=== PATIENT | female | born 1985 | race Caucasian/White ===

== ENCOUNTER 2018-06-13 16:13 | Outpatient (REF) | payer OTHER, SELFPAY ==
--- NOTE | 2018-06-13 15:40 | PAPFT_PTH ---
PATIENT: Sandra Fitch LOC: [facility] U#:[id number] AGE/SX: 33/F ROOM: RE06/13/[address]: Juju Terrell : 1985 BED: DIS: 06/13/2018 SPEC #: [id number] RECD: 06/13/18 18:03 STATUS: DON REStefany #: [id number] SVITLANA: 06/13/18 15:[address]: Juju Terrell DEPT: [facility] Cytology RECD BY: Peggy Cueto ENTERED: 06/13/18 18:04 SP TYPE: PAPFT MARK DR: None Tissues: 1 - CX/ENDOCX FOR PAP SMEARS Procedures: PAP THIN PREP/UVM Screening HPV DNA PROBE Comments: [id number]
== END 2018-06-13 16:33 ==
LOC: LBN 16:13
PROVIDERS: Visit Provider Obstetrics & Gynecology Gynecology
DX: Z12.4 Encounter for screening for malignant neoplasm of cervix (principal); Z11.51 Encounter for screening for human papillomavirus (HPV)
CPT/HCPCS: 88142; 87624

== ENCOUNTER 2018-07-27 16:42 | Outpatient (REF) | payer OTHER, SELFPAY ==
[2018-07-29 14:33] LABS: Chlamydia Result Negative; GC Result Negative; Specimen Description CERVIX
== END 2018-07-27 17:02 ==
LOC: LBN 16:42
PROVIDERS: Visit Provider Advanced Practice Midwife
DX: Z11.3 Encounter for screening for infections with a predominantly sexual mode of transmission (principal)
CPT/HCPCS: 87491; 87591

== ENCOUNTER 2020-05-17 04:59 | Outpatient (CLI) | payer OTHER, SELFPAY ==
--- NOTE | 2020-05-17 15:20 | DI.MAMMO_ITS ---
EXAM: MG MAMMO SCREENING CLINICAL HISTORY: screening,z12.39,z80.3, family h/o breast ca. TECHNIQUE: Bilateral full field digital CC and MLO mammographic images were obtained with 3D tomosyn thesis and utilizing computer aided detection (CAD). COMPARISON: This is a baseline mammogram on this 35-year-old patient whose mother of metastatic breast cancer at age 48. She has no present breast complaints. This patient has apparently had a p rior left breast biopsy, date not given. FINDINGS: Fibroglandular tissue pattern is dense, this decreasing the sensitivity mammogram for finding hidden underlying lesions. There are no new findings in the immediate vicinity of the biopsy marker clip in the upper outer quad rant of the left breast. Posteriorly in the left breast there is a subtle microcalcification group which exhibits a CAD design ation the MLO view. Spot magnification view recommended. In the right breast on 3D MLO imaging there is a subtle suggestion of a nodular density located 5 cm in from the nipple on the MLO view, this measuring approximately 4 x 3 millimeters. There is no significant architectural distortion or skin thickening-traction. IMPRESSION: Dense bilateral fibroglandular tissue (which decreases the sensitivity of the mammogram for finding h idden underlying lesions). 4 x 3 millimeter right breast nodule. Posteriorly located left breast mi crocalcification group. Recommend further breast imaging, to include: Spot Mag 2D view of posteriorl y located left breast microcalcifications.. Spot compression 3D view of right breast asymmetric dens ity-possible nodule. Also recommend bilateral breast ultrasound, given the density of this patient's fibroglandular tissue, the above findings, anterior significant immediate family history (mother d of breast cancer at age 48). BI-RADS Category 0 - Assessment Incomplete: Need additional imaging evaluation Breast Density - Category C - Heterogeneously dense Breast density Category C or D implies that the patient has dense breast tissue. Dense breast tissue can make it harder to find cancer on a mammogram. Dense breast tissue is also associated with an incr eased risk of breast cancer. This information about the result of the mammogram report was provided to the patient to raise their awareness. Use this report when you speak with the patient about their risks for breast cancer, which includes their family history. At that time, you may recommend additional screening tests (Ultrasoun d or MRI) as these tests may add significant information. A negative radiographic report should not delay biopsy if a dominant or clinically suspicious mass is present. Up to ten percent of cancers are not identified on mammography. A negative report may reinforce clinical impression. Adenosis and dense breasts may obscure an underlying neoplasm. False positive reports average 6 to 10%. Patient will receive a letter notifying them of these results.
== END 2020-05-17 05:19 ==
PROVIDERS: PCP Obstetrics & Gynecology; Visit Provider Obstetrics & Gynecology
DX: Z12.31 Encounter for screening mammogram for malignant neoplasm of breast (principal); R92.8 Other abnormal and inconclusive findings on diagnostic imaging of breast; Z80.3 Family history of malignant neoplasm of breast
CPT/HCPCS: 77063; 77067

== ENCOUNTER 2020-05-21 02:09 | Outpatient (CLI) | payer OTHER, SELFPAY ==
--- NOTE | 2020-05-21 | DI.MAMMO_ITS ---
EXAM: MG MAMMO SCREEN CALL BACK BI and bilateral limited breast ultrasound. CLINICAL HISTORY: F/U MAMMO,DENSE BREASTS,SUBTLE LT MICROCALCIFICATIONS,RT BREAST DENSITY,?. TECHNIQUE: Craniocaudal and mediolateral oblique Full Field Digital Mammography views of the bilater al breast with Computer Aided Diagnosis followed by Tomosynthesis and bilateral breast ultrasound. COMPARISON: No priors available at this time. When the prior films become available, an addendum wi ll be issued at that time. FINDINGS: Mammography/Tomosynthesis: Masses/Architectural Distortion: In the right breast a small well-circumscribed nodule persists in th e upper right breast. Microcalcifictions: No suspicious pleomorphic-type are seen. There again seen a few punctate calcific ations in the posterior upper left breast on the MLO view. Skin Thickening/Nipple Retraction: None. Bilat breast US: Echotexture: Normal appearance of the glandular tissue. Shadowing: No suspicious foci. Cyst: At the 10 o'clock position of the right breast 5 cm from the nipple there is a 0.[address] present. No suspicious cystic or solid masses are seen in the right breast. A limited left breas t ultrasound was performed. The upper inner and upper outer quadrants were evaluated sonographically . No cystic or solid masses are seen sonographically in the left breast. Solid lesions: None seen. Ductal dilation: None. IMPRESSION: 1. No evidence of malignancy is noted. 2. A six-month follow-up left mammogram is recommended for re-evaluation of the calcifications. If t he prior films become available an addendum will be issued. 3. The findings were discussed with the patient on the date of the examination. BI-RADS Category 3 - Probably Benign Finding: Recommend follow-up imaging in 3 months Breast Density - Category C - Heterogeneously dense Breast density Category C or D implies that the patient has dense breast tissue. Dense breast tissue can make it harder to find cancer on a mammogram. Dense breast tissue is also associated with an incr eased risk of breast cancer. This information about the result of the mammogram report was provided to the patient to raise their awareness. Use this report when you speak with the patient about their risks for breast cancer, which includes their family history. At that time, you may recommend additional screening tests (Ultrasoun d or MRI) as these tests may add significant information. A negative radiographic report should not delay biopsy if a dominant or clinically suspicious mass is present. Up to ten percent of cancers are not identified on mammography. A negative report may reinforce clinical impression. Adenosis and dense breasts may obscure an underlying neoplasm. False positive reports average 6 to 10%. Patient will receive a letter notifying them of these results.
== END 2020-05-21 02:29 ==
PROVIDERS: PCP Obstetrics & Gynecology; Visit Provider Obstetrics & Gynecology
DX: R92.0 Mammographic microcalcification found on diagnostic imaging of breast (principal); N60.01 Solitary cyst of right breast; Z12.31 Encounter for screening mammogram for malignant neoplasm of breast
CPT/HCPCS: 76642; 77063; 77067

== ENCOUNTER 2020-11-22 03:23 | Outpatient (CLI) | payer OTHER, SELFPAY ==
--- NOTE | 2020-11-22 09:00 | DI.MAMMO_ITS ---
Exam(s) MAMMO DIAGNOSTIC UNI EXAM: MAMMO DIAGNOSTIC UNI CLINICAL HISTORY: recheck left breast, F/U ABNL MAMMO, R92.8. TECHNIQUE: Craniocaudal and mediolateral oblique Full Field Digital Mammography views of the left br east with Computer Aided Diagnosis followed by Tomosynthesis. COMPARISON: Priors available for comparison FINDINGS: Mammography/Tomosynthesis: Masses/Architectural Distortion: None seen. A biopsy clip is again seen in the upper outer quadrant o f the left breast. Microcalcifictions: The microcalcifications in the posterior left breast are less well visualized but are stable compared to the prior examination. Skin Thickening/Nipple Retraction: None. IMPRESSION: 1. No evidence of malignancy is noted. 2. A six-month follow-up left mammogram is recommended for re-evaluation of the microcalcifications. 3. The findings were discussed with the patient on the date of the examination. BI-RADS Category 3 - 6 month - Probably Benign Finding: Recommend follow-up imaging in 6 months Breast Density - Category C - Heterogeneously dense Breast density Category C or D implies that the patient has dense breast tissue. Dense breast tissue can make it harder to find cancer on a mammogram. Dense breast tissue is also associated with an incr eased risk of breast cancer. This information about the result of the mammogram report was provided to the patient to raise their awareness. Use this report when you speak with the patient about their risks for breast cancer, which includes their family history. At that time, you may recommend additional screening tests (Ultrasoun d or MRI) as these tests may add significant information. A negative radiographic report should not delay biopsy if a dominant or clinically suspicious mass is present. Up to ten percent of cancers are not identified on mammography. A negative report may reinforce clinical impression. Adenosis and dense breasts may obscure an underlying neoplasm. False positive reports average 6 to 10%. Patient will receive a letter notifying them of these results.
== END 2020-11-22 03:43 ==
PROVIDERS: PCP Obstetrics & Gynecology; Visit Provider Obstetrics & Gynecology
DX: R92.8 Other abnormal and inconclusive findings on diagnostic imaging of breast (principal)
CPT/HCPCS: 77061; 77065; G0279

== ENCOUNTER 2023-04-05 21:49 | Emergency (ER) | payer OTHER, SELFPAY ==
[2023-04-05 21:53] VITALS: BP 93/59; PULSE 80; RESP 18; TEMP 36.5; O2SAT 98
[2023-04-05 22:06] VITALS: BP 93/59; PULSE 80; RESP 18; TEMP 36.5; O2SAT 98
--- NOTE | 2023-04-05 22:14 | ED.GENADUL_ITS ---
HPI General Date/Time Provider Initiated Documentation: 04/05/23 22:00 . HPI Narrative: 37-year-old female with a past medical history of bilateral mastectomy, previous in 2018, previous inguinal hernia repair, family history of ovarian cancer, presents today for abdominal pain. Patient states that she recently had a suspected gastroenteritis 6 to 7 days ago, she had 2 to 3 days of persistent vomiting. That has since resolved over 5 days ago, however this afternoon while performing yoga she had relatively sudden onset sharp and achy umbilical and left-sided abdominal pain. It would come and go in severity, but would not completely dissipate. It was primarily situated around the periumbilical and left upper and left mid abdominal regions. She had multiple episodes of dry heaving and some vomiting. She did try taking Zofran at home with no improvement. She denies pain like this before. She denies any urinary complaints, no vaginal bleeding or discharge. She does have the levonorgestrel IUD in place. No other complaints at this time. No other modifying factors. She denies any diarrhea. Related Data Home Medications Medication Instructions Recorded Confirmed levonorgestrel 21 mcg/24 hours (8 1 device intrauterine ONCE #1 ea 07/27/18 04/05/23 yrs) 52 mg intrauterine device (Mirena) docusate calcium 240 mg capsule 240 mg PO BID PRN 06/10/22 04/05/23 linaclotide 72 mcg capsule 72 mcg PO QAM PRN constipation #90 01/27/23 04/05/23 (Linzess) caps ondansetron 4 mg disintegrating 4 mg PO Q8H #20 tabs 04/06/23 tablet Previous Rx's Medication Instructions Recorded levonorgestrel 21 mcg/24 hours (8 1 device intrauterine ONCE #1 ea 07/27/18 yrs) 52 mg intrauterine device (Mirena) linaclotide 72 mcg capsule 72 mcg PO QAM PRN constipation #90 01/27/23 (Linzess) caps ondansetron 4 mg disintegrating 4 mg PO Q8H #20 tabs 04/06/23 tablet Allergies Allergy/AdvReac Type Severity Reaction Status Date / Time Sulfa (Sulfonamide Allergy Intermediate Hives Verified 04/05/23 22:06 Antibiotics) General Stated Complaint: Abd Prob MICK: 3 Review of Systems All systems reviewed & are unremarkable except as noted in HPI and below Exam Narrative Exam Narrative: 1.Const: Well-nourished, Well-developed, appearing stated age 2.Eyes: PERRL, no conjunctival injection, and symmetrical lids. 3.ENT: Atraumatic external nose and ears. Dry MM. Neck: Symmetric, trachea midline, No thyromegaly. 4.CVS: +S1/S2, No murmurs or gallops. Peripheral pulses 2+ and equal in all extremities. Brisk capillary refill in all extremities. 5.RESP: Unlabored respiratory effort. Clear to auscultation bilaterally. No wheezes rales or rhonchi 6.GI: Soft, nondistended. No pain to McBurney's point, negative Romo sign. Mild left upper and left mid abdominal tenderness on palpation. Negative obturator and psoas sign. Positive mild heel strike test on the left. 7.MSK: Normocephalic/Atraumatic, Extremities w/o deformity or ttp No cyanosis or clubbing, Normal movement of all extremities 8.Skin: Warm, Dry. No rashes or lesions. 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 Sensation grossly intact, no focal neurologic deficits. 10.Psych: (AAO) x3. Appropriate mood and affect Course Vital Signs Vital signs: Vital Signs Temperature 36.5 C 04/05/23 21:53 Pulse 80 04/05/23 21:53 Respiratory Rate 18 04/05/23 21:53 Blood Pressure 93/59 L 04/05/23 21:53 Pulse Oximetry 98 04/05/23 21:53 Temperature 36.5 C 04/05/23 22:06 Temperature Source Temporal Artery Scan 04/05/23 22:06 Pulse 80 04/05/23 22:06 Respiratory Rate 18 04/05/23 22:06 Respiratory Effort Normal, Non-Labored, Short of Breath 04/05/23 22:01 Blood Pressure 93/59 L 04/05/23 22:06 Blood Pressure Position Supine 04/05/23 22:06 Pulse Oximetry 98 04/05/23 22:06 Oxygen Delivery Method Room Air 04/05/23 22:06 Oxygen Flow Rate 0 04/05/23 21:53 End Tidal Co2 6 04/05/23 21:53 Medical Decision Making 37-year-old female with a past medical history of bilateral mastectomy, previous in 2018, previous inguinal hernia repair, family history of ovarian cancer, presents today for abdominal pain. Patient states that she recently had a suspected gastroenteritis 6 to 7 days ago, she had 2 to 3 days of persistent vomiting. That has since resolved over 5 days ago, however this afternoon while performing yoga she had relatively sudden onset sharp and achy umbilical and left-sided abdominal pain. It would come and go in severity, but would not completely dissipate. It was primarily situated around the periumbilical and left upper and left mid abdominal regions. She had multiple episodes of dry heaving and some vomiting. She did try taking Zofran at home with no improvement. She denies pain like this before. She denies any urinary complaints, no vaginal bleeding or discharge. She does have the levonorgestrel IUD in place. No other complaints at this time. No other modifying factors. She denies any diarrhea. Exam demonstrates patient in mild to moderate pain. Tenderness in the left upper and left mid abdominal regions. No right-sided tenderness or right upper or lower quadrant tenderness. No flank or CVA tenderness. The remainder the patient's exam appears benign. Differential includes diverticulitis, ovarian cyst, obstruction, kidney stone. Patient is requesting to stick with NSAID therapy for pain control. We will give oral Zofran, a liter of normal saline for rehydration, 15 mg of Toradol IV, get a CAT scan to evaluate for acute etiologies, evaluate for laboratory abnormalities including pancreatitis, monitor closely and reassess. 2:24 AM Laboratory workup has returned normal, lipase normal, urinalysis shows no evidence of blood or infection, trace ketones are noted. Patient is given total of 2 L of normal saline at this point. After Zofran Toradol and Ofirmev her pain is notably improved. She has been drinking water while here in the ED. Laboratory workup demonstrates minimal white count, no bandemia. CT scan per radiology shows evidence of small and large bowel distention concerning for ileus. There is notable stool balls are present, there is a left ovarian cyst, but this is smaller in nature not the location of the patient's symptoms. On reassessment patient is feeling better. I discussed with the patient admission for observation and fluids versus discharge, patient prefers discharge at this time. I did discuss with her potential need for returning if her vomiting returns. Patient understands this. Patient will be discharged home with Zofran as noted and instructions for liquid diet for the next 24 to 48 hours. Discussed red flags for which to return. I have extensively reviewed the treatment plan and discharge instructions with the patient and their family. I have addressed all patient concerns at this time. The patient and family was made aware of what symptoms to monitor for that would warrant a return to the emergency department. Discussed the plan with the patient and family, they demonstrate verbal understanding and agreement with our assessment and plan at this time. The documentation in this chart was dictated using [employer] dictation software. Please excuse any dictation errors. FINDINGS: Limitations: Mild motion artifact. Liver: No focal hepatic lesion identified. Gallbladder and bile ducts: Distended gallbladder. Mild biliary ductal dilatation. Pancreas: No CT evidence for acute pancreatitis. Spleen: No splenomegaly. Adrenal glands: Adrenal thickening. Kidneys and ureters: No hydronephrosis or evidence for pyelonephritis. Stomach and bowel: Gastric distension. Diffuse fluid distension of small bowel. No dilated loops to suggest high-grade obstruction at this time. Large amount of retained fecal material throughout the colon. Appendix: No evidence of appendicitis. Intraperitoneal space: No free air. Vasculature: No abdominal aortic aneurysm. Lymph nodes: Multiple mesenteric lymph nodes. Urinary bladder: No acute findings. Reproductive: Intrauterine device. 2.3 cm septated left ovarian cyst. Bones/joints: No pertinent acute abnormality seen. Soft tissues: No pertinent acute abnormality seen. IMPRESSION: 1. Distension of small and large bowel. Consider ileus, inflammation. 2. Retained fecal material throughout the colon. Correlate clinically for history of constipation. 3. Left ovarian cyst. 4. Additional findings as above. Thank you for allowing us to participate in the care of your patient. Dictated and Authenticated by: Elizabeth Hopkins MD 04/06/2023 1:34 AM Eastern Time ([place] & [place]) Quality:SDOH Health Related Social Needs: No Data to Display PFSH All Active Problems (Updated 04/06/23 @ 02:21 by Td Mas DO) Ileus (Acute) Chronic constipation (Acute) Monoallelic mutation of PALB2 gene (Chronic) Increased risk for Breast (35-60%) Ovarian (3-5%) and Pancreatic malignancy. Has referral to Comprehensive Breast Program at [facility] [place] Family history of malignant neoplasm of breast (Acute) IUD surveillance (Acute) Medical History Well woman exam with routine gynecological exam Abnormal screening mammogram Done 04/2020. Reviewed by radiology with recommendation for 6 month follow up mammo and B/L breast U/S. Patient is scheduled for these diagnostics Vulvar lesion Well woman exam with routine gynecological exam History of placenta previa complete previa. labor and PCS at 33w EGA. P tcounseled that she is 4-8% chance of recurrence with another . 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 [facility]. 20% risk of recurrence. 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 M. 6lb9oz (2990gm) Repair of inguinal hernia Family History Mother , Dx premenopausal breast CA. Neg nodes. Rx with lumpectomy and Tamoxifen. 6yrs later metastatic breast Ca. 54yo Breast cancer Aunt , Dx postmenopausal breast CA. 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 [employer] Pets and animals: Yes (3) Sexually active: Yes Do you think of yourself as: straight/heterosexual Current gender identity: female What is your relationship status?: How often do you talk on the phone with friends or family?: three or more times per week How often do you get together with friends or relatives?: twice per week Do you belong to any clubs or organized social groups?: no Panel score (0-1 are the most socially isolated patients): 2 What type of physical activity do you participate in: running Duration: 30-45 minutes/day Frequency: 5-6 times per week Clover/Episcopal: None Special clvoer needs: No Seatbelt use: always Helmet use: Yes Helmet use: always Drive intox or ride w/intox sales route driver: No Additional Social history: - [employer]. 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 Daughter Pat. Son Jin. Female Reproductive History Menstrual control method: pills History History 2 Para Hx # Term Pregnancies 1 Multiple births Hx # Pregnancies 1 Ectopic pregnancies AB induced Hx Number of Living Children AB spontaneous Discharge Plan Disposition Patient Disposition: Home Condition: Good Discharge Details Clinical Impression: Ileus Primary Care Provider: Devi Bobby ED Provider: Td Mas Home Meds and New Rx's Prescriptions: New ondansetron 4 mg tablet,disintegrating 4 mg PO Q8H Qty: 20 0RF No Action Mirena 20 mcg/24 hours (5 yrs) 52 mg intrauterine device 1 device IY ONCE Qty: 1 0RF Rx Instructions: as a single dose docusate calcium 240 mg capsule 240 mg PO BID PRN Patient Comments: constipation Linzess 72 mcg capsule 72 mcg PO QAM PRN (Reason: constipation) Qty: 90 3RF Rx Instructions: Take at least 30 min prior to first meal for constipation Discharge Instructions Instructions: Ileus (ED) Additional Instructions: At this time your CAT scan shows evidence of an ileus. You do have small ovarian cyst as well. I suspect the ileus and constipation is the cause of your symptoms at this time. Please use the Zofran as needed. Please stick with a liquid diet for the next 24 to 36 hours, you can then transition to a semisolid diet with Jell-O, fat-free yogurt, applesauce, and small bites of rice. If you do well with this you can continue to advance the diet, however if you have continued cramps then you may need to transition back to a liquid diet. As we discussed together there is a concern that the ileus may transition into an obstruction. If you develop repeat vomiting that cannot be controlled with Zofran, please return for reassessment and fluids. If you notice any worsening of your symptoms, or any new symptoms such as vomiting, diarrhea, fever, chills, shortness of breath, chest pain, numbness, weakness, or fainting , please return immediately to the emergency department for reevaluation. Please follow up with your primary care provider as soon as possible for reassessment and reevaluation. As always, it was a pleasure participating in your medical care today. Referrals: Devi Bobby NP [Primary Care Provider] -
[2023-04-05 22:21] LABS: Lactate 0.7 mmol/L (0.6-1.4)
[2023-04-05 22:24] LABS: Abs Immature Grans 0.05 10^3/uL (0.0-0.06); Absolute Basophil Count 0.03 10^3/uL (0.0-0.2); Absolute Eosinophil Count 0.03 10^3/uL (0.0-0.7); Absolute Monocyte Count 0.32 10^3/uL (0.1-0.8); Absolute Neutrophil Count 10.45 10^3/uL (1.2-6.7); Basophils % 0.3; Eosinophils % 0.3; HCT 43.1 % (36.0-46.0); HGB 14.1 g/dL (11.2-15.7); Immature Grans % 0.4; MCH 29.4 pg (27.0-33.0); MCHC 32.7 % (32.0-36.0); MCV 90 fL (80-95); MPV 10.5 fL (8.0-11.0); Monocytes % 2.8; Neutrophils % 90.2; Platelet Count 327 10^3/uL (130-400); RBC 4.79 10^6/uL (3.93-5.22); RDW 14.2 % (11.7-14.6); RDW-SD 47.1 fL; WBC 11.59 10^3/uL (4.4-10.8)
[2023-04-05] MEDS: Ketorolac 15 MG/ML VIAL IVP (22:32)
[2023-04-05] MEDS: Ondansetron 4 MG/2 ML VIAL IVP (22:32)
[2023-04-05] MEDS: Normal Saline 1,000 ML 1000 ML IV (22:32)
--- NOTE | 2023-04-05 22:33 | NUR.NOTE ---
Pt stated she is deydrated and unable to provide a urine at this time, FPJ
[2023-04-05 22:44] LABS: ALT 40 U/L (14-59); AST 25 U/L (15-37); Albumin 4.2 g/dL (3.4-5.0); Alkaline Phosphatase 95 U/L (46-116); Anion Gap 9.7 mmol/L (3-11); BUN 10 mg/dL (7-18); Bilirubin, Total 0.7 mg/dL (0.2-1.0); CO2 26.3 mmol/L (21.0-32.0); CREATININE 0.7 mg/dL (0.55-1.02); Chloride 104 mmol/L (98-107); Estimated GFR 114.16 (mL/min/1.73m2); Glucose 109 mg/dL (74-106); Lipase 57 U/L (16-77); Potassium 3.6 mmol/L (3.5-5.1); Sodium 140 mmol/L (136-145); Total Protein 7.3 g/dL (6.4-8.2)
--- NOTE | 2023-04-06 | DI.CT_ITS ---
Exam(s) CT ABDOMEN PELVIS W EXAM: CT ABDOMEN PELVIS W CLINICAL HISTORY: left sided abdominal pain, vomiting. TECHNIQUE: Imaging Protocol: Axial computed tomography images with coronal and sagittal reformatted images were created and reviewed CONTRAST MATERIAL: Intravenous: Omnipaque 350 Contrast volume:85 ml Oral: no COMPARISON: No exams were available for comparison FINDINGS: ABDOMEN and PELVIS: Lung Bases: No acute findings. Liver: Normal density. No measurable mass. Gallbladder and biliary tract: No radiodense. Mild extrahepatic biliary dilation. Question of sma ll diverticulum of the descending duodenum. Pancreas: Normal density. No abnormal calcifications or inflammatory process. No evidence of mass. Spleen: Normal. Kidneys: Normal size, contour and axis. No radiodense stones. No obstructive uropathy. No suspicious masses seen. Adrenal glands: No masses seen. Vasculature: Abdominal aorta non-dilated. Soft tissues: Unremarkable. Bladder: No gross wall thickening. No calculi.No focal mass. Bowel: Colon is markedly distended with stool. Stomach is distended with fluid. Diffuse fluid-fille d loops of small bowel. No bowel wall thickening. Appendix normal. Peritoneal cavity: No ascites. No focal collection or mesenteric inflammatory response. Bones: Unremarkable for age. Reproductive organs: Within normal limits. IUD Lymph nodes: Unremarkable. IMPRESSION:: Large quantity of stool throughout the colon. Fluid-filled loops of small bowel. No f indings to suggest obstruction. RADIATION DOSE DELIVERED: 616.94mGy.cm Total DLP DATA REPOSITORY: All CT scans at this facility are submitted to the National Radiology Data Registry (NRDR) Dose Index Registry (DIR) with the [employer] ([employer]). RADIATION OPTIMIZATION: All CT scans at this facility use at least one of these dose optimization te chniques: automated exposure control; mA and/or kV adjustment per patient size (includes targeted exa ms where dose is matched to clinical indication); or iterative reconstruction.
[2023-04-06 00:15] VITALS: BP 94/48; PULSE 78; RESP 16; O2SAT 95
[2023-04-06] MEDS: ACETAMINOPHEN 1,000 MG/100 ML BTL 400 MG IVPB (00:17)
[2023-04-06] MEDS: Ondansetron 4 MG/2 ML VIAL (00:18)
[2023-04-06] MEDS: Omnipaque 350 MG/ML 100 ML BTL IJ (00:22)
[2023-04-06] MEDS: Normal Saline Flush 10 ML SYR IVP (00:23)
[2023-04-06] MEDS: Normal Saline - Diluent 50 ML VIAL IJ (00:23)
[2023-04-06 00:40] LABS: Bilirubin Negative (Negative); Blood Negative (Negative); Clarity Clear (Clear); Glucose Negative (Negative); Ketones Trace mg/dL (Negative); Leukocyte Esterase Negative (Negative); Nitrite Negative (Negative); Urobilinogen 0.2 mg/dL (Up to 0.2)
[2023-04-06] MEDS: Normal Saline 1,000 ML 1000 ML IV (01:05)
--- NOTE | 2023-04-06 01:35 | DI.VRAD_ITS ---
PROCEDURE INFORMATION: Exam: CT Abdomen And Pelvis With Contrast Exam date and time: 04/06/2023 12:35 AM Age: 37 years old Clinical indication: Abdominal pain; Localized; Left; Patient HX: L sided abd pain, vomiting, nausea TECHNIQUE: Imaging protocol: Computed tomography of the abdomen and pelvis with contrast. Radiation optimization: All CT scans at this facility use at least one of these dose optimization techniques: automated exposure control; mA and/or kV adjustment per patient size (includes targeted exams where dose is matched to clinical indication); or iterative reconstruction. Contrast material: OMNIPAQUE 350; Contrast volume: 85 ml; Contrast route: INTRAVENOUS (IV); COMPARISON: No relevant prior studies are available for comparison. FINDINGS: Limitations: Mild motion artifact. Liver: No focal hepatic lesion identified. Gallbladder and bile ducts: Distended gallbladder. Mild biliary ductal dilatation. Pancreas: No CT evidence for acute pancreatitis. Spleen: No splenomegaly. Adrenal glands: Adrenal thickening. Kidneys and ureters: No hydronephrosis or evidence for pyelonephritis. Stomach and bowel: Gastric distension. Diffuse fluid distension of small bowel. No dilated loops to suggest high-grade obstruction at this time. Large amount of retained fecal material throughout the colon. Appendix: No evidence of appendicitis. Intraperitoneal space: No free air. Vasculature: No abdominal aortic aneurysm. Lymph nodes: Multiple mesenteric lymph nodes. Urinary bladder: No acute findings. Reproductive: Intrauterine device. 2.3 cm septated left ovarian cyst. Bones/joints: No pertinent acute abnormality seen. Soft tissues: No pertinent acute abnormality seen. IMPRESSION: 1. Distension of small and large bowel. Consider ileus, inflammation. 2. Retained fecal material throughout the colon. Correlate clinically for history of constipation. 3. Left ovarian cyst. 4. Additional findings as above. Dictated and Authenticated by: Elizabeth Hopkins MD. Ordering:ZAYDA Appiah MD
[2023-04-06 01:55] VITALS: BP 97/62; PULSE 75; RESP 16; O2SAT 97
[2023-04-06] MEDS: Ondansetron O.D.T. 4 MG TABEF, 3 TABS/BTL PO (02:32)
[2023-04-06] MEDS: Ondansetron 4 MG/2 ML VIAL IVP (02:32)
[2023-04-06 02:34] VITALS: BP 97/62; PULSE 75; RESP 16; O2SAT 97
== END 2023-04-06 02:24 | disposition home or self-care (01) ==
PROVIDERS: Emergency Provider Student in an Organized Health Care Education/Training Program; PCP Nurse Practitioner Adult Health
DX: R10.33 Periumbilical pain (principal); K56.7 Ileus, unspecified; Z97.5 Presence of (intrauterine) contraceptive device
CPT/HCPCS: 80053; 81025; 83690; 96361; 96374; 96375; 99285; 74177; 81003; 83605; 85025; 87086; 99284; J0131; J1885; J2405; J3490

== ENCOUNTER → 2023-04-16 01:35 | Outpatient (CLI) | payer OTHER, SELFPAY ==
--- NOTE | 2023-04-16 13:49 | DI.RAD_ITS ---
Exam(s) XR ABDOMEN FLAT PLATE EXAM: 2D digital imaging was performed. CLINICAL HISTORY: assess bowel fullness,chronic constipation,k59.09. COMPARISON: CT CT ABDOMEN PELVIS W from 04/06/2023 TECHNIQUE: Supine views of the abdomen was performed. Two images were obtained. FINDINGS: LUNG BASES: Clear. BOWEL GAS PATTERN: Nondistended. There is stool throughout the colon suggesting constipation. FREE AIR: None. CALCIFICATIONS: No radiopaque calcifications. There are phleboliths in the pelvis. OSSEOUS STRUCTURES: Normal for age. OTHER FINDINGS: There is an IUD in the pelvis. IMPRESSION: Stool throughout the colon suggesting constipation. DATA REPOSITORY: RADIATION DOSE DELIVERED:
== END ==
PROVIDERS: PCP Nurse Practitioner Adult Health; Visit Provider Nurse Practitioner Adult Health
DX: K59.09 Other constipation (principal)
CPT/HCPCS: 74018

== ENCOUNTER 2023-05-18 15:49 | Outpatient (REF) | payer OTHER, SELFPAY ==
--- NOTE | 2023-05-18 14:40 | PAPFT_PTH ---
PATIENT: Sandra Fitch LOC: [facility] U#:[id number] AGE/SX: 38/F ROOM: RE05/18/[address]: Arlet Quiles DO : 1985 BED: DIS: 05/18/2023 SPEC #: [id number] RECD: 05/18/23 17:44 STATUS: DON REQ #: [id number] SVITLANA: 05/18/23 14:[address]: Arlet Quiles DEPT: [facility] Cytology RECD BY: Peggy Cueto ENTERED: 05/18/23 17:44 SP TYPE: PAPFT OTHR DR: Devi Bobby APRN Tissues: 1 - CX/ENDOCX FOR PAP SMEARS Procedures: PAP THIN PREP/[facility] Screening HPV DNA PROBE Comments: [id number]
== END 2023-05-18 15:50 | disposition home or self-care (01) ==
LOC: LBN 15:49
PROVIDERS: PCP Nurse Practitioner Adult Health; Visit Provider Obstetrics & Gynecology
DX: Z12.4 Encounter for screening for malignant neoplasm of cervix (principal); Z11.51 Encounter for screening for human papillomavirus (HPV)
CPT/HCPCS: 88142; 87624

== ENCOUNTER 2023-10-20 08:35 | Outpatient (CLI) | payer OTHER, SELFPAY ==
--- NOTE | 2023-10-20 08:30 | DI.RAD_ITS ---
Exam(s) XR FOOT LT COMPLETE XR TOE LT THIRD EXAM: XR FOOT LT COMPLETE CLINICAL HISTORY: left 4th toe pain, M89.8X7. TECHNIQUE: 2D digital imaging was performed. Six views. COMPARISON: CR XR TOE LT THIRD from 10/20/2023 FINDINGS: BONES: No acute fracture is present. No bony destructive lesion is seen. JOINTS: No dislocation present. No significant degenerative changes. SOFT TISSUE: Normal. IMPRESSION: Unremarkable radiographs of the left foot and 4th toe. DATA REPOSITORY: RADIATION DOSE DELIVERED:
--- NOTE | 2023-10-20 11:35 | DI.RAD_ITS ---
Exam(s) XR FOOT RT COMPLETE EXAM: XR FOOT RT COMPLETE CLINICAL HISTORY: sub 2nd and 5th met head, M79.671. TECHNIQUE: 2D digital imaging was performed. Three views. COMPARISON: CR XR FOOT LT COMPLETE from 10/20/2023 FINDINGS: BONES: No acute fracture is present. No bony destructive lesion is seen. Tiny enthesophyte at [place] es insertion. JOINTS: No dislocation present. No significant degenerative changes. Plantar arch is maintained. SOFT TISSUE: Normal. IMPRESSION: Unremarkable radiographs of the right foot. DATA REPOSITORY: RADIATION DOSE DELIVERED:
== END 2023-10-20 08:55 ==
PROVIDERS: PCP Nurse Practitioner Adult Health; Visit Provider Podiatrist
DX: M79.671 Pain in right foot (principal); M89.8X7 Other specified disorders of bone, ankle and foot
CPT/HCPCS: 73630; 73660

== ENCOUNTER 2023-12-28 15:34 | Outpatient (CLI) | payer OTHER, SELFPAY ==
--- NOTE | 2023-12-28 15:30 | DI.RAD_ITS ---
Exam(s) XR TOE RT GREAT EXAM: XR TOE RT GREAT CLINICAL HISTORY: RIGHT GREAT TOE PAIN. TECHNIQUE: 2D digital imaging was performed. Two views COMPARISON: CR XR FOOT RT COMPLETE from 10/20/2023 CR XR TOE LT THIRD from 10/20/2023 FINDINGS: BONES: No acute fracture is present. No bony destructive lesion is seen. JOINTS: No dislocation present. SOFT TISSUE: Normal. IMPRESSION: No evidence of acute fracture, dislocation, or subluxation. DATA REPOSITORY: RADIATION DOSE DELIVERED:
== END 2023-12-28 15:35 | disposition home or self-care (01) ==
LOC: DIORS 15:34
PROVIDERS: PCP Nurse Practitioner Adult Health; Visit Provider Student in an Organized Health Care Education/Training Program
DX: M79.674 Pain in right toe(s) (principal)
CPT/HCPCS: 73660

== ENCOUNTER 2024-03-24 00:49 | Outpatient (CLI) | payer OTHER, SELFPAY ==
--- NOTE | 2024-03-24 07:00 | DI.MRI_ITS ---
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 COMPARISON: MR MRI - CERVICAL SPINE W/WO from 04/14/2016 FINDINGS: Exam is limited by motion. BONES: Vertebral body heights are maintained. Alignment is normal. Bone marrow signal intensity is wi thin normal limits. CERVICAL CORD: Craniovertebral junction is unremarkable. Again noted is an area of narrowing of the cervical cord in the AP dimension at the C6-7 through C7-T1 levels. High signal is again noted centr ally within the cord. The findings appear stable. Elsewhere the cervical cord is normal size and si gnal intensity. SOFT TISSUES: Unremarkable. C2-3: No disc herniation or bulge is identified. No evidence of neural foraminal narrowing. No signi ficant central canal stenosis. C3-4: Disc osteophytes eccentric toward the right. No evidence of neural foraminal narrowing. No sig nificant central canal stenosis. C4-5: No disc herniation or bulge is identified. No evidence of neural foraminal narrowing. No signif icant central canal stenosis. C5-6: No disc herniation or bulge is identified. No evidence of neural foraminal narrowing. No signif icant central canal stenosis. C6-7: No disc herniation or bulge is identified. No evidence of neural foraminal narrowing. No signif icant central canal stenosis. C7-T1: No disc herniation or bulge is identified. No evidence of neural foraminal narrowing. No signi ficant central canal stenosis. IMPRESSION: Stable appearance thinning of the cervical cord from C6-7 through C7-T1 and stable central high signa l. No evidence of mass or other abnormal areas of enhancement, although the exam is limited due to m otion. Stable appearance disc osteophytes at C3-4. DATA REPOSITORY:
--- NOTE | 2024-03-24 07:00 | DI.MRI_ITS ---
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 Both noninfused and contrast i nfused sequences were performed. IV Contrast injected was 11 cc Dotarem. COMPARISON: MR MRI - BRAIN W/WO CONTRAST from 12/25/2010 FINDINGS: CEREBRAL PARENCHYMA: No evidence of intracranial hemorrhage, mass effect nor shift of midline structu re. No extraaxial fluid collections. Ventricles are not enlarged nor shifted. No significant enhancing l esions evident within the ventricular system. There is no significant focal signal abnormality in the cerebellar hemispheres nor within the americo, m idbrain, and thalami. There is no abnormal signal abnormality in the periventricular white matter. DWI: No areas of restricted diffusion to suggest acute ischemic event. SWI: No microhemorrhages evident. There are no ring enhancing lesions in the brain. There is no abnormal meningeal enhancement. PITUITARY GLAND: No mass nor parasellar abnormality. No obvious abnormality in the cavernous sinuses. FLOW VOIDS: The expected flow void are noted. No evidence of obvious aneurysm nor obvious vascular ma lformation. PARANASAL SINUSES: Some mucosal thickening is noted in floor the right maxillary sinus consistent wit h probable post inflammatory retention cysts. No fluid levels ORBITS: No obvious abnormal findings. IMPRESSION: 1. No significant intracranial findings on this MRI scan of the brain. 2. No abnormal enhancing intracranial findings. There are no ring enhancing lesions in the brain and there is no abnormal meningeal enhancement. There also no abnormal enhancing intraventricular findi ngs, given the past history here. DATA REPOSITORY:
[2024-03-24] MEDS: Gadoterate meglumine 20 ML SYRINGE 11 ML IVP (12:48)
[2024-03-24] MEDS: Normal Saline Flush 10 ML SYR IVP (12:49)
== END 2024-03-24 01:09 ==
LOC: DI 00:49
PROVIDERS: PCP Nurse Practitioner Adult Health; Visit Provider Nurse Practitioner Adult Health
DX: R42 Dizziness and giddiness (principal); M25.78 Osteophyte, vertebrae
CPT/HCPCS: 70553; 72156

== ENCOUNTER 2024-04-06 14:16 | Outpatient (CLI) | payer OTHER, SELFPAY ==
--- NOTE | 2024-04-06 11:15 | DI.RAD_ITS ---
Exam(s) XR CHEST 2V PA LATERAL EXAM: XR CHEST 2V PA LATERAL CLINICAL HISTORY: R06.02 SOB TECHNIQUE: 2D digital imaging was performed. Two views. COMPARISON: CR CHEST 2 VIEWS PA,LAT from 09/30/2008 FINDINGS: HEART: Normal size. Aorta: Not dilated. PULMONARY VASCULATURE: Normal. MEDIASTINUM: Unremarkable. LUNGS: Clear. PLEURAL SPACE: No pleural effusion or pneumothorax. BONE:Unremarkable for age. SOFT TISSUES: Breast implants. IMPRESSION: No acute abnormality. DATA REPOSITORY: RADIATION DOSE DELIVERED:
== END 2024-04-06 14:36 ==
LOC: DI 14:16
PROVIDERS: PCP Nurse Practitioner Adult Health; Visit Provider Emergency Medicine
DX: R06.02 Shortness of breath (principal)
CPT/HCPCS: 71046

== ENCOUNTER 2024-04-06 14:18 | Outpatient (CLI) | payer OTHER, SELFPAY ==
[2024-04-06 11:36] LABS: Abs Immature Grans 0.01 10^3/uL (0.0-0.06); Absolute Basophil Count 0.01 10^3/uL (0.0-0.2); Absolute Lymphocyte Count 0.87 10^3/uL (1.2-3.4); Absolute Monocyte Count 0.25 10^3/uL (0.1-0.8); Absolute Neutrophil Count 3.59 10^3/uL (1.2-6.7); Basophils % 0.2 %; HCT 42.1 % (36.0-46.0); Immature Grans % 0.2 %; Lymphocytes % 18.4 %; MCH 31.3 pg (27.0-33.0); MCHC 33.3 % (32.0-36.0); MCV 94 fL (80-95); MPV 11.2 fL (8.0-11.0); Monocytes % 5.3 %; Neutrophils % 75.9 %; Platelet Count 221 10^3/uL (130-400); RBC 4.48 10^6/uL (3.93-5.22); RDW 12.2 % (11.7-14.6); RDW-SD 42.8 fL; WBC 4.73 10^3/uL (4.4-10.8)
[2024-04-06 11:45] LABS: Anion Gap 7.1 mmol/L (3-11); BUN 5 mg/dL (7-18); CO2 29.9 mmol/L (21.0-32.0); CREATININE 0.8 mg/dL (0.55-1.02); Calcium 9.3 mg/dL (8.5-10.1); Chloride 106 mmol/L (98-107); Estimated GFR 96.66 (mL/min/1.73m2); Glucose 104 mg/dL (74-106); Sodium 143 mmol/L (136-145)
[2024-04-06 11:58] LABS: NT-proBNP 36 pg/mL (<300)
[2024-04-06 11:59] LABS: D-Dimer 295 ng/mlFEU (<500)
== END 2024-04-06 14:19 | disposition home or self-care (01) ==
LOC: LBO 14:19
PROVIDERS: PCP Nurse Practitioner Adult Health; Visit Provider Emergency Medicine
DX: R06.02 Shortness of breath (principal)
CPT/HCPCS: 36415; 80048; 83880; 85025; 85379

== ENCOUNTER 2025-02-07 12:41 | Outpatient (REF) | payer OTHER, SELFPAY | END 2025-02-07 12:42 | disposition home or self-care (01) | LOC: LBN 12:41 | PROVIDERS: PCP Nurse Practitioner Adult Health; Visit Provider Nurse Practitioner Family | DX: J02.9 Acute pharyngitis, unspecified (principal) | CPT/HCPCS: 87077; 87070 ==